=== PATIENT | male | born 1945 | race Caucasian/White ===

== ENCOUNTER 2022-10-12 11:21 | Inpatient (IN) | payer MEDICARE, OTHER ==
[~2022-10-12 11:21] MED LIST: Iopamidol 300 61% 100 ML VIAL FS ONE
[2022-10-12 11:52] LABS: Bilirubin Neg (Negative); Blood, Urine 10 (Negative); Clarity Clear (Clear); Glucose, Urine (Dipstick) 100 mg/dL (Negative); Ketone, Urine 15 mg/dL (Negative); Leukocyte Negative (Negative); Nitrite Negative (Negative); Protein, Urine (Dipstick) Negative (Neg-Trace); Urobilinogen Normal mg/dL (Less than 2)
[2022-10-12] MEDS ORDERED: Morphine 4 MG/ML VIAL ONE (12:01)
[2022-10-12] MEDS ORDERED: Ondansetron PF 4 MG/2 ML Vial ONE (12:01)
[2022-10-12 12:17] LABS: Bacteria/HPF 1+ HPF (None Seen); Squamous Epithelial 0-3 HPF (0-3); WBC/HPF 0-3 HPF (0-3)
[2022-10-12 12:29] LABS: Hemoglobin 14.1 g/dL (13.5-17.5); Mean Corpuscular HGB CONC 34.7 g/dL (32.0-36.0); Mean Corpuscular Volume 83.5 fl (81.2-95.1); Platelet Count 378 10x3/uL (150-450); RBC Distribution Width 12.6 % (11.5-14.5); Red Blood Cell (RBC) Count 4.86 10x6/uL (4.32-5.72); White Blood Cell (WBC) Count 27.5 10x3/uL (3.5-10.5)
[2022-10-12 12:40] LABS: MDiff Complete? YES
[2022-10-12 12:41] LABS: ALT (SGPT) 9 U/L (8-55); AST (SGOT) 12 U/L (5-34); Albumin 3.4 g/dL (3.4-4.8); Alkaline Phosphatase 62 U/L (40-110); Anion Gap 16 mmol/L (10-20); BUN (Urea Nitrogen) 14 mg/dL (8.4-25.7); Bilirubin, Total 0.7 mg/dL (0.2-1.2); Calc. Creatinine Clearance 0 mL/min (70-130); Carbon Dioxide 23 mmol/L (23-31); Chloride 101 mmol/L (98-107); Estimated GFR 90; Globulin 2.2 g/dL (2.4-3.5); Glucose 158 mg/dL (83-110); Lipase 5 U/L (8-78); Potassium 3.8 mmol/L (3.5-5.1); Protein, Total 5.6 g/dL (5.8-8.1); Sodium 136 mmol/L (136-145)
[2022-10-12 12:52] LABS: Band 5 % (5-11); Lymphocytes 6 % (21-51); Monocytes 8 % (0-10); Neutrophil 81 % (42-75)
[2022-10-12 12:54] LABS: Platelet Morphology Comment Appears Adequate; RBC Morphology Normal
[2022-10-12] MEDS ORDERED: Piperacillin/Tazobactam 3.375 GM VIAL ONE (13:07)
[2022-10-12] MEDS ORDERED: Acetaminophen 325 MG TAB PO PRN (14:16)
[2022-10-12] MEDS ORDERED: Polyethylene Glycol 3350 17 GM Packet PO PRN (14:19)
[2022-10-12] MEDS ORDERED: Ventolin HFA Inhaler 60 PUFF INHALER INH PRN (14:37)
[2022-10-12 15:28] LABS: Troponin I 0.017 ng/mL (< 0.028)
[2022-10-12 18:50] LABS: Lactic Acid 2.9 mmol/L (0.5-2.2)
[2022-10-12 18:57] LABS: Troponin I 0.019 ng/mL (< 0.028)
[2022-10-12] MEDS ORDERED: Piperacillin/Tazobactam 3.375 GM in Sodium Chloride 0.9% 100 ML IVPB SCH (20:00)
[2022-10-12] MEDS: Gabapentin 300 MG CAP PO SCH (20:54)
[2022-10-12] MEDS: Senokot S 8.6-50 MG TAB PO SCH (20:54)
[2022-10-12 21:08] LABS: Lactic Acid 2.7 mmol/L (0.5-2.2)
[2022-10-12 22:22] LABS: SARS-CoV-2 NAA Rapid Test Not Detected (NotDetected)
[2022-10-13] MEDS ORDERED: Piperacillin/Tazobactam 3.375 GM in Sodium Chloride 0.9% 100 ML IVPB SCH
[2022-10-13] MEDS: Senokot S 8.6-50 MG TAB PO SCH ×3 (00:01→20:03)
[2022-10-13] MEDS: Gabapentin 300 MG CAP PO SCH ×4 (00:01→20:03)
[2022-10-13 04:41] LABS: #Basophils 0.1 10x3/uL (0.0-0.2); #Eosinphils 0.2 10x3/uL (0.0-0.5); #Monocytes 1.8 10x3/uL (0.0-1.1); %Basophils 0.5 % (0.0-2.0); %Eosinophils 0.9 % (0.0-6.0); %Lymphocytes 14.3 % (18.0-47.0); %Monocytes 9.9 % (0.0-10.0); %Neutrophils 73.7 % (40.0-75.0); Mean Corpuscular HGB CONC 34.1 g/dL (32.0-36.0); Mean Corpuscular Hemoglobin 28.9 pg (27.0-33.0); Mean Corpuscular Volume 84.7 fl (81.2-95.1); Mean Platelet Volume 9.3 fl (7.4-10.4); Platelet Count 412 10x3/uL (150-450); RBC Distribution Width 12.9 % (11.5-14.5); Red Blood Cell (RBC) Count 4.84 10x6/uL (4.32-5.72); White Blood Cell (WBC) Count 17.6 10x3/uL (3.5-10.5)
[2022-10-13 05:07] LABS: Anion Gap 14 mmol/L (10-20); BUN (Urea Nitrogen) 11 mg/dL (8.4-25.7); Calc. Creatinine Clearance 0 mL/min (70-130); Calcium 8.4 mg/dL (7.8-10.44); Carbon Dioxide 23 mmol/L (23-31); Chloride 107 mmol/L (98-107); Estimated GFR 91; Glucose 98 mg/dL (83-110); Potassium 3.5 mmol/L (3.5-5.1); Sodium 140 mmol/L (136-145)
[2022-10-13] MEDS: Enoxaparin Sodium 40 MG/0.4 ML SYRINGE SC SCH (08:22)
[2022-10-13] MEDS: HYDROcodone/Acetaminophen 10/325 mg Tablet PO PRN ×3 (08:23→20:14)
[2022-10-13] MEDS: Tamsulosin HCl 0.4 MG CAP PO SCH (08:24)
[2022-10-13] MEDS: Piperacillin/Tazobactam 3.375 GM in Sodium Chloride 0.9% 100 ML IVPB SCH ×3 (08:26→23:48)
[2022-10-13] MEDS: Bisacodyl 5 MG TAB PO SCH (08:26)
[2022-10-13] MEDS ORDERED: Lactated Ringer's 500 ML IV SCH (10:45)
[2022-10-13 11:25] LABS: Lactic Acid 1.1 mmol/L (0.5-2.2)
[2022-10-13] MEDS ORDERED: Ondansetron ODT 4 MG TAB PO PRN (14:16)
[2022-10-13] MEDS: Methocarbamol 500 MG TAB PO PRN (20:04)
[2022-10-14 04:28] LABS: #Basophils 0.1 10x3/uL (0.0-0.2); #Eosinphils 0.3 10x3/uL (0.0-0.5); #Monocytes 1.2 10x3/uL (0.0-1.1); #Neutrophils 7.9 10x3/uL (1.5-8.4); %Basophils 0.8 % (0.0-2.0); %Eosinophils 2.6 % (0.0-6.0); %Lymphocytes 23.1 % (18.0-47.0); %Monocytes 9.9 % (0.0-10.0); %Neutrophils 62.9 % (40.0-75.0); Hemoglobin 12.7 g/dL (13.5-17.5); Mean Corpuscular HGB CONC 33.6 g/dL (32.0-36.0); Mean Corpuscular Hemoglobin 28.5 pg (27.0-33.0); Mean Corpuscular Volume 84.8 fl (81.2-95.1); Mean Platelet Volume 9.1 fl (7.4-10.4); Platelet Count 345 10x3/uL (150-450); RBC Distribution Width 12.8 % (11.5-14.5); Red Blood Cell (RBC) Count 4.46 10x6/uL (4.32-5.72); White Blood Cell (WBC) Count 12.5 10x3/uL (3.5-10.5)
[2022-10-14 04:45] LABS: Anion Gap 12 mmol/L (10-20); BUN (Urea Nitrogen) 13 mg/dL (8.4-25.7); Calc. Creatinine Clearance 97 mL/min (70-130); Calcium 8.3 mg/dL (7.8-10.44); Carbon Dioxide 23 mmol/L (23-31); Chloride 106 mmol/L (98-107); Estimated GFR 93; Glucose 84 mg/dL (83-110); Potassium 3.3 mmol/L (3.5-5.1); Sodium 138 mmol/L (136-145)
[2022-10-14] MEDS: HYDROcodone/Acetaminophen 10/325 mg Tablet PO PRN ×2 (05:18→23:22)
[2022-10-14] MEDS ORDERED: Potassium Chloride 20 MEQ TAB PO SCH (08:45)
[2022-10-14] MEDS: Enoxaparin Sodium 40 MG/0.4 ML SYRINGE SC SCH (10:26)
[2022-10-14] MEDS: Tamsulosin HCl 0.4 MG CAP PO SCH (10:27)
[2022-10-14] MEDS: Bisacodyl 5 MG TAB PO SCH (10:27)
[2022-10-14] MEDS: Gabapentin 300 MG CAP PO SCH ×3 (10:27→20:02)
[2022-10-14] MEDS: Senokot S 8.6-50 MG TAB PO SCH ×2 (10:27→20:02)
[2022-10-14] MEDS: Piperacillin/Tazobactam 3.375 GM in Sodium Chloride 0.9% 100 ML IVPB SCH ×3 (10:31→23:19)
[2022-10-14] MEDS: Methocarbamol 500 MG TAB PO PRN (17:28)
[2022-10-15 04:32] LABS: #Basophils 0.1 10x3/uL (0.0-0.2); #Eosinphils 0.3 10x3/uL (0.0-0.5); #Monocytes 0.8 10x3/uL (0.0-1.1); #Neutrophils 5.8 10x3/uL (1.5-8.4); %Basophils 0.9 % (0.0-2.0); %Eosinophils 3.1 % (0.0-6.0); %Lymphocytes 25.2 % (18.0-47.0); %Monocytes 8.7 % (0.0-10.0); %Neutrophils 61.4 % (40.0-75.0); Hemoglobin 13.6 g/dL (13.5-17.5); Mean Corpuscular HGB CONC 33.9 g/dL (32.0-36.0); Mean Corpuscular Hemoglobin 29.1 pg (27.0-33.0); Mean Corpuscular Volume 85.9 fl (81.2-95.1); Mean Platelet Volume 9.2 fl (7.4-10.4); Platelet Count 354 10x3/uL (150-450); Red Blood Cell (RBC) Count 4.67 10x6/uL (4.32-5.72); White Blood Cell (WBC) Count 9.4 10x3/uL (3.5-10.5)
[2022-10-15 05:07] LABS: Anion Gap 12 mmol/L (10-20); BUN (Urea Nitrogen) 11 mg/dL (8.4-25.7); Calc. Creatinine Clearance 89 mL/min (70-130); Carbon Dioxide 26 mmol/L (23-31); Chloride 105 mmol/L (98-107); Estimated GFR 91; Glucose 75 mg/dL (83-110); Magnesium 1.9 mg/dL (1.6-2.6); Potassium 3.4 mmol/L (3.5-5.1); Sodium 140 mmol/L (136-145)
[2022-10-15] MEDS ORDERED: Potassium Chloride 20 MEQ TAB PO SCH (08:30)
[2022-10-15] MEDS: Piperacillin/Tazobactam 3.375 GM in Sodium Chloride 0.9% 100 ML IVPB SCH (08:41)
[2022-10-15] MEDS: Tamsulosin HCl 0.4 MG CAP PO SCH (08:45)
[2022-10-15] MEDS: Enoxaparin Sodium 40 MG/0.4 ML SYRINGE SC SCH (08:45)
[2022-10-15] MEDS: Senokot S 8.6-50 MG TAB PO SCH (08:45)
[2022-10-15] MEDS: Gabapentin 300 MG CAP PO SCH (08:45)
[2022-10-15] MEDS: Bisacodyl 5 MG TAB PO SCH (08:46)
[2022-10-15] MEDS: HYDROcodone/Acetaminophen 10/325 mg Tablet PO PRN (11:18)
[2022-10-15 11:36] VITALS: BP 142/66; TEMP 98.3
== END 2022-10-15 12:17 | disposition home or self-care (01) | DRG 872 ==
LOC: SUATTDRO 11:21 → CSHERS 11:21 → CSHTELE 17:39
PROVIDERS: ADMIT Internal Medicine; ATTEND Internal Medicine
DX: A41.9 Sepsis, unspecified organism (principal); N39.0 Urinary tract infection, site not specified; A09 Infectious gastroenteritis and colitis, unspecified; R65.20 Severe sepsis without septic shock; Z20.822 Contact with and (suspected) exposure to COVID-19; K59.03 Drug induced constipation; F11.90 Opioid use, unspecified, uncomplicated; G89.4 Chronic pain syndrome; E87.6 Hypokalemia; T40.2X5A Adverse effect of other opioids, initial encounter; I10 Essential (primary) hypertension; M54.9 Dorsalgia, unspecified; Z79.899 Other long term (current) drug therapy
CPT/HCPCS: 36415; 74018; 74177; 80048; 80053; 81003; 81015; 83605; 83690; 83735; 84484; 85025; 87040; 87077; 87086; 87186; 87324; 87449; 93005; 96365; 96375; J1650; J2270; J2405; J2543; J3490; J7120; Q0162; Q9967; U0002